=== PATIENT | female | born 1955 | race Caucasian/White ===

== ENCOUNTER 2020-02-03 09:38 | Outpatient (CLI) | payer BC, SELFPAY ==
--- NOTE | 2020-02-03 09:44 | MM_ITS ---
WS: [id number] SCREENING DIGITAL MAMMOGRAM WITH CAD HISTORY: SCREENING COMPARISON: 11/19/2018 and 11/12/2017 Bilateral CC and MLO views submitted. Computer aided detection analyzed. Breast composition: The breasts are heterogeneously dense, which may obscure small masses. No suspici ous masses, microcalcifications or architectural distortion. MM/[place] [id number] IMPRESSION: BI-RADS: 1-Negative FOLLOW UP: 1 Year Follow-up
== END 2020-02-03 09:39 | disposition home or self-care (01) ==
LOC: RADSHAW 09:43
PROVIDERS: PCP Family Medicine; Visit Provider Family Medicine
DX: Z12.31 Encounter for screening mammogram for malignant neoplasm of breast (principal)
CPT/HCPCS: 77067

== ENCOUNTER 2020-08-25 14:10 | Outpatient (CLI) | payer BC, SELFPAY ==
--- NOTE | 2020-08-25 14:15 | XR_ITS ---
WS: [id number] SCREENING DEXA SCAN [employer] CLINICAL INFORMATION: POSTMENOPAUSAL STATUS COMPARISON: FINDINGS: The L1-L4 bone mineral density measures 0.973 g/cm2. This corresponds to a T score score of -1.7 and Z score of 0.1. Left femoral neck bone mineral density measures 0.846 g/cm2. This corresponds to a T score of -1.3 an d Z score of 0.1. Right femoral neck bone mineral density measures 0.848 g/cm2. This corresponds to a T score -1.3of an d Z score of 0.1. Mean femoral neck bone mineral density measures 0.847 g/cm2. This corresponds to a T score of -1.3 an d Z score of 0.1. XR/XR DEXA axial skeleton* [id number] IMPRESSION: Osteopenia Patient's FRAX calculated 10 year probability for major osteoporotic fracture i s 7.0 % and osteoporotic hip fracture is 0.7%.
== END 2020-08-25 14:11 | disposition home or self-care (01) ==
LOC: RADWPI 14:14
PROVIDERS: PCP Family Medicine; Visit Provider Family Medicine
DX: Z78.0 Asymptomatic menopausal state (principal); M85.88 Other specified disorders of bone density and structure, other site
CPT/HCPCS: 77080

== ENCOUNTER 2021-03-14 14:52 | Outpatient (CLI) | payer BC, SELFPAY ==
--- NOTE | 2021-03-14 14:59 | MM_ITS ---
WS: [id number] BILATERAL DIGITAL SCREENING MAMMOGRAPHY WITH CAD CLINICAL INFORMATION: SCREENING HISTORY: Screening mammogram. No current complaints. COMPARISON: February 03, 2020 TECHNIQUE: Bilateral CC and MLO views. FINDINGS: Scattered fibroglandular densities bilaterally. No suspicious focal mass, asymmetry, calcifications, or architectural distortion. No evidence of malignancy. MM/[place] [id number] IMPRESSION: BI-RADS: 1-Negative FOLLOW UP: 1 Year Follow-up Recommend return to annual screening mammography.
== END 2021-03-14 14:53 | disposition home or self-care (01) ==
LOC: RADSHAW 14:57
PROVIDERS: PCP Family Medicine; Visit Provider Family Medicine
DX: Z12.31 Encounter for screening mammogram for malignant neoplasm of breast (principal)
CPT/HCPCS: 77067

== ENCOUNTER 2021-08-31 10:05 | Outpatient (CLI) | payer BC, SELFPAY ==
--- NOTE | 2021-08-31 10:19 | XR_ITS ---
WS: [id number] RIGHT KNEE: 3 VIEW(S) TECHNIQUE: AP, oblique(s) and lateral. HISTORY: R KNEE PAIN COMPARISON: None available. No fracture or dislocation. No joint space narrowing or osteophytes. No joint effusion. No soft tissue abnormality. XR/XR knee RT 3V* [id number] IMPRESSION: Normal RIGHT knee.
== END 2021-08-31 10:06 | disposition home or self-care (01) ==
LOC: RAD 10:09
PROVIDERS: PCP Family Medicine; Visit Provider Family Medicine
DX: M25.561 Pain in right knee (principal)
CPT/HCPCS: 73562

== ENCOUNTER 2021-12-29 11:19 | Outpatient (CLI) | payer BC, SELFPAY ==
--- NOTE | 2021-12-29 11:27 | XR_ITS ---
WS: [id number] Left knee, 3 views, 12/29/2021 Clinical Data: left knee joint pain Comparison: None. Findings: No fractures or dislocations are seen. The joint spaces are normal. The patella is intact. The soft t issues are unremarkable. XR/XR knee LT 3V* [id number] Impression: Negative left knee. Kellgren-Randy Classification: grade 0 (none): definite absence of x-ray rizwan nges of osteoarthritis
== END 2021-12-29 11:20 | disposition home or self-care (01) ==
PROVIDERS: PCP Family Medicine; Visit Provider Clinical Nurse Specialist Adult Health
DX: M25.562 Pain in left knee (principal)
CPT/HCPCS: 73562

== ENCOUNTER 2022-03-16 10:42 | Outpatient (CLI) | payer BC, SELFPAY ==
--- NOTE | 2022-03-16 11:01 | MM_ITS ---
WS: [id number] BILATERAL SCREENING DIGITAL TOMOSYNTHESIS MAMMOGRAM WITH CAD HISTORY: SCREENING COMPARISON: 03/14/2021 and 02/03/2020 Bilateral CC and MLO views with tomosynthesis and synthetic mammography submitted. Computer aided det ection analyzed. Breast composition: The breasts are heterogeneously dense, which may obscure small masses. No suspici ous masses, microcalcifications or architectural distortion. MM/[place] [id number] IMPRESSION: BI-RADS: 1-Negative FOLLOW UP: 1 Year Follow-up
== END 2022-03-16 10:43 | disposition home or self-care (01) ==
LOC: RAD 10:44
PROVIDERS: PCP Family Medicine; Visit Provider Family Medicine
DX: Z12.31 Encounter for screening mammogram for malignant neoplasm of breast (principal)
CPT/HCPCS: 77063; 77067

== ENCOUNTER 2022-06-01 11:13 | Emergency (ER) | payer BC, SELFPAY ==
[2022-06-01 11:28] VITALS: BP 134/70; PULSE 44; RESP 16; TEMP 36.9
[2022-06-01 11:33] VITALS: BP 135/72; PULSE 52; RESP 16
--- NOTE | 2022-06-01 11:38 | XR_ITS ---
WS: [id number] EXAMINATION: XR cervical spine 3V* [id number] Cervical spine 3 views REASON FOR EXAM: trauma COMPARISON: None available. FINDINGS: There is no sign of acute fracture or subluxation. Vertebral body heights maintained. There is diffu se narrowing of the intervertebral disc spaces from C3 through C7 with prominent anterior and posteri or spondylosis. The cervical bony alignment suggests a straightening of the normal cervical lordosis . There is no prevertebral soft tissue change. Incidental small right cervical rib. XR/XR cervical spine 3V* [id number] IMPRESSION: No acute osseous abnormality. Cervical muscle spasm possibly resulting in reduc tion of the normal cervical lordosis. Prominent cervical degenerative disc changes as noted above.
--- NOTE | 2022-06-01 11:38 | CT_ITS ---
WS: [id number] CT HEAD NONCONTRAST HISTORY: trauma TECHNIQUE: Contiguous axial imaging performed through the brain in 2.5 mm imaging. Bone and soft tiss ue windows. Sagittal and coronal reformats reviewed. All CT scans at [facility] use at least one of these dose optimization techniques: automated exposure control; mA and/or kV adjustment per pa tient size (includes targeted exams where dose is matched to clinical indication); or iterative recon struction. DLP: 1310.00 mGy.cm COMPARISON: None available. No acute intracranial hemorrhage, midline shift or mass effect. Atrophy and small vessel ischemic disease. No prior infarct. Ventricles: Normal size with no hydrocephalus. Paranasal sinuses: As visualized are clear. Mastoid air cells: Well pneumatized. Calvarium and scalp: No fracture. Soft tissue laceration over the RIGHT parietal vertex. CT/CT head wo con* [id number] IMPRESSION: 1. No acute intracranial hemorrhage or edema. 2. Minimal atrophy and small vessel ischemic disease. 3. Posterior RIGHT parietal scalp laceration. No fracture.
--- NOTE | 2022-06-01 12:03 | PC.NURSE ---
DR. PEREZ APPLIED 4 NINA TO PT HEAD LACERATION
[2022-06-01 12:33] VITALS: BP 134/88; PULSE 57; RESP 16; O2SAT 99
--- NOTE | 2022-06-01 12:42 | W.ED.HEATRA ---
HPI - Head Injury General: Chief complaint: Head Injury Stated complaint: head injury post fall Time Seen by Provider: 06/01/22 11:38 Source: patient Mode of arrival: ambulatory History of Present Illness: 67-year-old female presents emergency room with complaint of a fall. She was playing pickle ball stumbled and fell backwards struck the back of her head she has a laceration over the occiput about 5 cm in length. There is no loss of consciousness she has some mild neck discomfort. No other injury. She is not on any anticoagulants. MD Complaint: head injury Onset (ago): minute(s) Arrival Conditions: C-spine immobilization present Mechanism of Injury: fall and sports related injury Loss of Consciousness: no Location of injury: occipital Severity: mild Radiation: none Other Injuries: none Associated symptoms: Deny amnesia, confusion, nausea, neck pain, numbness, syncope, tingling, vertigo, visual changes, vomiting or weakness Review of Systems Const: Denies: fever(s), chills, body aches, change in appetite, fatigue or malaise ENMT: Denies: throat pain, ear or mastoid pain, nasal discharge or nasal congestion Card: Denies: chest pain, palpitations, irregular heart rhythm or syncope Resp: Denies: dyspnea, productive cough or non-productive cough GI: Denies: nausea or vomiting : Denies: flank pain, difficulty voiding, dysuria, urinary frequency or urinary urgency Musc: Denies: neck pain Skin/Breast: Denies: rash or pruritus Neuro: Denies: vertigo or confusion [facility] ED PFSH: Medical History (Updated 06/10/22 @ 16:54 by Nikko Sin DO) No significant past medical history Surgical History (Updated 06/10/22 @ 16:54 by Nikko Sin DO) No significant past surgical history Social History (Updated 06/10/22 @ 16:54 by Nikko Sin DO) Smoking and tobacco status: never smoked Physical Exam Const: COMMON NORMALS: no acute distress GENERAL APPEARANCE: cooperative and comfortable ORIENTATION/CONSCIOUSNESS: Yes awake, Yes oriented to person, Yes oriented to place and Yes oriented to time HENMT: COMMON NORMALS: normocephalic, hearing grossly normal bilaterally, external ears normal, EAC's normal, TM's normal bilaterally, Normal nasal mucous membranes and turbinates present, moist oral mucous membranes and oropharynx normal HEAD & SCALP: normocephalic NOSE: Normal nasal mucous membranes and turbinates present EXTERNAL EAR: Yes external ears normal EXTERNAL AUDITORY CANAL: EAC's normal TYMPANIC MEMBRANE: TM's normal bilaterally Eye: COMMON NORMALS: Equal, round and reactive pupils present, EOMs intact bilaterally, conjunctivae normal and no scleral icterus CONJUNCTIVA: Yes conjunctivae normal PUPIL: Yes Equal, round and reactive pupils present Resp: COMMON NORMALS: normal respiratory effort, No retractions, No use of accessory muscles and clear to auscultation bilaterally AUSCULTATION: clear to auscultation bilaterally Cardio: COMMON NORMALS: regular rate, regular rhythm and No murmurs present (Cardio) RATE: regular rate RHYTHM: regular rhythm GI: COMMON NORMALS: Soft to palpation and No hepatosplenomegaly present AUSCULTATION: Yes normoactive bowel sounds PALPATION: Yes Soft to palpation, No Tenderness to palpation present (GI), No Guarding due to palpation present (GI) and Yes No hepatosplenomegaly present Extremity: COMMON NORMALS: normal to inspection, capillary refill normal, no clubbing, cyanosis or edema, no calf tenderness and no pedal edema Neuro: SENSORIUM/ORIENTATION: Yes oriented to person, Yes oriented to place and Yes oriented to time Skin: COMMON NORMALS: no rashes or lesions noted GENERAL SKIN EXAM: no rashes or lesions noted Procedures Laceration Laceration 1: Site: scalp Size (cm): 7 Description: linear Depth: simple, single layer Pre-repair: irrigated extensively Skin layer closed with: other (Didi) Course Vital Signs: Vital signs: Vital Signs Temperature 98.4 F 06/01/22 11:28 Pulse Rate 65 06/01/22 13:03 Respiratory Rate 16 06/01/22 12:33 Blood Pressure 134/88 06/01/22 13:03 Pulse Oximetry 98 06/01/22 13:03 MDM - Head Injury Medcial Decision Making Imaging negative. Laceration closed with didi in the scalp wound care instructions given Didi out in 7 to 10 days Lab Data Radiology Impressions Cervical Spine X-Ray 06/01/22 11:38 IMPRESSION: No acute osseous abnormality. Cervical muscle spasm possibly resulting in reduction of the normal cervical lordosis. Prominent cervical degenerative disc changes as noted above. Head CT 06/01/22 11:38 IMPRESSION: 1. No acute intracranial hemorrhage or edema. 2. Minimal atrophy and small vessel ischemic disease. 3. Posterior RIGHT parietal scalp laceration. No fracture. Discharge Plan Discharge Patient Disposition: Home Clinical Impression: Closed head injury, Fall, Laceration of head Condition: Stable Discharge Orders: Discharge ED (Routine); Ordered 06/01/22 Ordered By: Nikko Sin Referrals: Anthony Arguelles MD [Primary Care Provider] - Patient Instructions: Scalp Laceration, Opioid Safety, Pain Management Activity Restrictions/Additional Instructions: You were seen today after a fall. Scan of your head and x-rays of your neck were normal. Laceration of the back of the head was closed with didi these should be removed in 7 to 10 days your primary care doctor's office. Recommend applying an [id number] topical Vaseline-based antibiotic ointment to the laceration at least once daily will make taking the didi out much easier and the wound will heal sooner. Coding Level of Care Code ED Strip Mine Supervisor for Katy Willis
[2022-06-01 13:03] VITALS: BP 134/88; PULSE 65; O2SAT 98
== END 2022-06-01 13:04 | disposition home or self-care (01) ==
PROVIDERS: Emergency Provider Family Medicine; PCP Family Medicine
DX: S09.8XXA Other specified injuries of head, initial encounter (principal); S01.01XA Laceration without foreign body of scalp, initial encounter; W01.0XXA Fall on same level from slipping, tripping and stumbling without subsequent striking against object, initial encounter
CPT/HCPCS: 12002; 70450; 72040; 99284

== ENCOUNTER → 2022-10-03 15:17 | Outpatient (BNVA) | payer BC, SELFPAY | PROVIDERS: PCP Family Medicine; Visit Provider Podiatrist Foot & Ankle Surgery | DX: M79.672 Pain in left foot (principal); G57.62 Lesion of plantar nerve, left lower limb | CPT/HCPCS: 73630 ==

== ENCOUNTER 2023-03-28 09:44 | Outpatient (CLI) | payer BC, SELFPAY ==
--- NOTE | 2023-03-28 10:10 | MM_ITS ---
WS: [id number] SCREENING DIGITAL TOMOSYNTHESIS MAMMOGRAM WITH CAD HISTORY: SCREENING COMPARISON: 03/16/2022 and 03/14/2021 Bilateral CC and MLO with tomosynthesis views submitted. Synthetic mammography reviewed. Computer aid ed detection analyzed. Breast composition: There are scattered areas of fibroglandular density. No suspicious masses, microc alcifications or architectural distortion. IMPRESSION: MM/[place] [id number] BI-RADS: 1-Negative FOLLOW UP: 1 Year Follow-up
== END 2023-03-28 09:45 | disposition home or self-care (01) ==
PROVIDERS: PCP Family Medicine; Visit Provider Family Medicine
DX: Z12.31 Encounter for screening mammogram for malignant neoplasm of breast (principal)
CPT/HCPCS: 77063; 77067

== ENCOUNTER 2023-06-26 11:56 | Emergency (ER) | payer BC, SELFPAY ==
--- NOTE | 2023-06-26 11:56 | XR_ITS ---
WS: [id number] Portable AP upright chest, 06/26/2023 Clinical Data: dyspnea/cough Comparison: None. Findings: No nodules, masses or effusions are seen. The heart is normal. The pulmonary vascularity is not increased. No pneumonia or pneumothorax is seen. The aortic arch and descending thoracic aorta s how minimal tortuosity. Monitor leads are on the chest wall. Impression: Atherosclerosis.
--- NOTE | 2023-06-26 11:57 | ECG_ITS ---
[facility] Test Date: 2023-06-26 Pat Name: Laureen Brennan Department: Room: Gender: Female Home Fire Alarm Installer: : 1955 Requested By: Nikko Woods Order Number: [id number] Rodger MD: Joanie Meneses M.D. Measurements Intervals Allison Rate: 54 P: -19 WA: 139 QRS: 87 QRSD: 80 T: 79 QT: 427 QTc: 406 Interpretive Statements SINUS BRADYCARDIA EARLY REPOLARIZATION [ST ELEVATION WITH NORMALLY INFLECTED T-WAVE] MODERATE ST DEPRESSION [0.05+ mV ST DEPRESSION] No previous ECG available for comparison Electronically Signed On 06-26-2023 17:49:54 RAW STOCK DYEING MACHINE TENDER by Joanie Meneses M.D. [id number]
[2023-06-26 11:59] VITALS: BP 103/64; PULSE 55; TEMP 36.6; O2SAT 96; BMI 17.2
[2023-06-26 12:25] LABS: Basophils % 0.5 %; Eosinophils # 0.1 10^3/uL (0.0-0.8); Eosinophils % 2.1 %; Hematocrit 42.5 % (36-47); Lymphocytes # 1.2 10^3/uL (0.8-4.8); Lymphocytes % 19.2 %; Mean Corpuscular HGB Conc 33.2 g/dL (30-55); Mean Corpuscular Hemoglobin 29.9 pg (27-33); Mean Platelet Volume 9.4 fL (7.4-10.4); Monocytes # 0.8 10^3/uL (0.2-0.9); Monocytes % 13.1 %; Neutrophils # 4.04 10^3/uL (1.8-7.7); Neutrophils % 64.6 %; Nucleated Red Blood Cells % 0 %; Platelet Count 170 10^3/cmm (157-399); Red Blood Count 4.72 10^6/uL (3.85-5.65); Red Cell Distribution Width 13.1 % (12.1-15.1); White Blood Count 6.25 10^3/uL (3.29-11.43)
[2023-06-26] MEDS: sodium chloride 0.9% 1,000 ML 999 ML IV (12:38)
[2023-06-26 12:42] LABS: Alanine Aminotransferase 17 U/L (0-33); Albumin Level 3.5 g/dL (3.5-5.2); Alkaline Phosphatase 44 U/L (35-105); Anion Gap 12.2 (5-19); Aspartate Amino Transferase 27 U/L (0-32); Blood Urea Nitrogen 15 mg/dL (8-23); Calcium 8.4 mg/dL (8.5-10.5); Carbon Dioxide 27 mmol/L (22-29); Chloride 101 mmol/L (98-107); Globulin 2.1 g/dL (1.3-4.6); Glomerular Filtration Rate 62.6 mL/min (90-130); Glucose 115 mg/dL (65-115); Osmolality Calculated 284 mOsm/kg (285-295); Potassium 4.2 mmol/L (3.5-5.1); Sodium 136 mmol/L (136-145); Total Bilirubin 0.3 mg/dL (0.15-1.2); Total Protein 5.6 g/dL (6.6-8.7)
[2023-06-26 12:44] LABS: Troponin(5th) Baseline 8 ng/L (0-10)
[2023-06-26 13:07] VITALS: BP 124/75; PULSE 78; RESP 21; O2SAT 98
--- NOTE | 2023-06-26 13:57 | ECG_ITS ---
[facility] Test Date: 2023-06-26 Pat Name: Laureen Brennan Department: Room: Gender: Female Draw Bench Operator: : 1955 Requested By: Nikko Woods Order Number: [id number] Rodger MD: Joanie Meneses M.D. Measurements Intervals [place] Rate: 65 P: 68 ID: [id number] QRS: 84 QRSD: 77 T: 70 QT: 394 QTc: 411 Interpretive Statements SINUS RHYTHM ST ELEVATION, PROBABLY EARLY REPOLARIZATION [ST ELEVATION WITH NORMALLY INFLECTED T-WAVE] MODERATE ST DEPRESSION [0.05+ mV ST DEPRESSION] Compared to ECG 06/26/2023 12:13:26 Sinus bradycardia no longer present ST (T wave) deviation still present Electronically Signed On 06-26-2023 21:49:38 MOP MAKER by Joanie Meneses M.D. [email or web address] [email or web address].[email or web address]/store/[id number]
[2023-06-26 14:34] LABS: Troponin 5 2HR 9.02 ng/L (0-10); Troponin 5 2HR Delta 1.02 ABS# (0-10)
--- NOTE | 2023-06-26 14:56 | W.ED.SYNCOPE ---
HPI - Syncope General: Chief Complaint: Syncope Stated Complaint: syncope Time Seen by Provider: 06/26/23 11:56 Source: patient Mode of arrival: EMS History of Present Illness: 68-year-old female presents to the emergency room with complaints of near syncopal episode. She went to the doctor's office cough cold upper respiratory symptoms as she was leaving and checking out she got diaphoretic bradycardic lightheaded and dizzy she denies ever having any chest pain that later down she felt like she was going to pass out and EMS was called she was brought into the emergency room at the time she arrived here she states she is feeling fine she is awake and alert with no specific complaints. She was mildly bradycardic and hypotensive. She had been having a lot of upper respiratory symptoms and sinus congestion which precipitated her doctor's visit today. MD complaint: felt faint and almost passed out Onset (ago): minute(s) Prodromal symptoms: lightheaded and diaphoresis Witnessed: Yes - by Bystander Context: standing up Associated symptoms: Reports weakness; Deny abdominal pain, chest pain, fever(s), headache(s), lightheadedness, nausea, short of breath or vertigo Treatments prior to arrival: IV fluids Review of Systems Const: Denies: fever(s) Card: Denies: chest pain or lightheadedness Resp: Denies: dyspnea GI: Denies: abdominal pain or nausea : Denies: dysuria, urinary frequency or urinary urgency Musc: Denies: neck pain or back pain Skin/Breast: Denies: rash Neuro: Denies: headache(s) or vertigo [facility] PFSH: Medical History (Updated 07/04/23 @ 00:00 by CAROLYN Echeverria) History of nonmelanoma skin cancer Surgical History (Updated 06/26/23 @ 18:23 by Anthony Arguelles MD) Hx of tonsillectomy and adenoids Social History Smoking and tobacco/nicotine status: never used tobacco/nicotine Physical Exam Const: COMMON NORMALS: no acute distress GENERAL APPEARANCE: cooperative and comfortable ORIENTATION/CONSCIOUSNESS: Yes awake, Yes oriented to person, Yes oriented to place and Yes oriented to time HENMT: COMMON NORMALS: normocephalic, atraumatic and hearing grossly normal bilaterally HEAD & SCALP: normocephalic and atraumatic Resp: COMMON NORMALS: normal respiratory effort, No retractions, No use of accessory muscles and clear to auscultation bilaterally AUSCULTATION: clear to auscultation bilaterally Cardio: COMMON NORMALS: regular rate, regular rhythm and No murmurs present (Cardio) RATE: regular rate RHYTHM: regular rhythm GI: COMMON NORMALS: Soft to palpation and No hepatosplenomegaly present AUSCULTATION: Yes normoactive bowel sounds PALPATION: Yes Soft to palpation, No Tenderness to palpation present (GI), No Guarding due to palpation present (GI) and Yes No hepatosplenomegaly present Extremity: COMMON NORMALS: normal to inspection, capillary refill normal, no clubbing, cyanosis or edema, no calf tenderness and no pedal edema Neuro: SENSORIUM/ORIENTATION: Yes oriented to person, Yes oriented to place and Yes oriented to time Skin: COMMON NORMALS: no rashes or lesions noted GENERAL SKIN EXAM: no rashes or lesions noted Course Vital Signs: Vital signs: Vital Signs Temperature 97.8 F 06/26/23 11:59 Pulse Rate 75 06/26/23 15:21 Respiratory Rate 21 H 06/26/23 13:07 Blood Pressure 119/73 06/26/23 15:21 Pulse Oximetry 95 06/26/23 15:21 Oxygen Delivery Me thod Room Air 06/26/23 11:59 MDM - Syncope Medical Decision Making Much improved after IV fluids no further symptoms. Patient was mildly bradycardic when she arrived here but that has improved as well blood pressure is improved with the fluids we will discharge patient home have her follow-up with her primary care doctor avoid any exertional activities in next couple of days recheck if has any worsening symptoms Medical Records I reviewed the patient's medical records. Lab Data I reviewed the patient's lab results. 06/26/23 12:16 06/26/23 12:16 Laboratory Results WBC 6.25 10^3/uL (3.29-11.43) 06/26/23 12:16 RBC 4.72 10^6/uL (3.85-5.65) 06/26/23 12:16 Hgb 14.10 g/dL (11.27-16.99) 06/26/23 12:16 Hct 42.5 % (36-47) 06/26/23 12:16 MCV 90.0 fl (85-98) 06/26/23 12:16 MCH 29.9 pg (27-33) 06/26/23 12:16 MCHC 33.2 g/dL (30-55) 06/26/23 12:16 RDW 13.1 % (12.1-15.1) 06/26/23 12:16 Plt Count 170 10^3/cmm (157-399) 06/26/23 12:16 MPV 9.4 fL (7.4-10.4) 06/26/23 12:16 Neut % (Auto) 64.6 % 06/26/23 12:16 Lymph % (Auto) 19.2 % 06/26/23 12:16 [place] % (Auto) 13.1 % 06/26/23 12:16 Eos % (Auto) 2.1 % 06/26/23 12:16 Baso % (Auto) 0.5 % 06/26/23 12:16 Neut # (Auto) 4.04 10^3/uL (1.8-7.7) 06/26/23 12:16 Lymph # (Auto) 1.2 10^3/uL (0.8-4.8) 06/26/23 12:16 [place] # (Auto) 0.8 10^3/uL (0.2-0.9) 06/26/23 12:16 Eos # (Auto) 0.1 10^3/uL (0.0-0.8) 06/26/23 12:16 Baso # (Auto) 0.0 10^3/uL (0.0-0.1) 06/26/23 12:16 Nucleated RBC % (auto) 0 % 06/26/23 12:16 Nucleated RBCs # 0.0 /100WBC 06/26/23 12:16 Sodium 136 mmol/L (136-145) 06/26/23 12:16 Potassium 4.2 mmol/L (3.5-5.1) 06/26/23 12:16 Chloride 101 mmol/L (98-107) 06/26/23 12:16 Carbon Dioxide 27 mmol/L (22-29) 06/26/23 12:16 Anion Gap 12.2 (5-19) 06/26/23 12:16 BUN 15 mg/dL (8-23) 06/26/23 12:16 Creatinine 0.9 mg/dL (0.5-0.9) 06/26/23 12:16 GFR Calculation 62.6 mL/min (90-130) L 06/26/23 12:16 Glucose 115 mg/dL (65-115) 06/26/23 12:16 Calculated Osmolality 284 mOsm/kg (285-295) L 06/26/23 12:16 Calcium 8.4 mg/dL (8.5-10.5) L 06/26/23 12:16 Total Bilirubin 0.3 mg/dL (0.15-1.2) 06/26/23 12:16 AST 27 U/L (0-32) 06/26/23 12:16 ALT 17 U/L (0-33) 06/26/23 12:16 Alkaline Phosphatase 44 U/L (35-105) 06/26/23 12:16 Troponin T Baseline 8 ng/L (0-10) 06/26/23 12:16 Troponin T 120 Minute 9.02 ng/L (0-10) 06/26/23 14:07 Delta Troponin T 1.02 ABS# (0-10) 06/26/23 14:07 Total Protein 5.6 g/dL (6.6-8.7) L 06/26/23 12:16 Albumin 3.5 g/dL (3.5-5.2) 06/26/23 12:16 Globulin 2.1 g/dL (1.3-4.6) 06/26/23 12:16 All radiology interpretation(s) finalized by discharge Discharge Plan Discharge Patient Disposition: Home Clinical Impression: Syncope due to orthostatic hypotension, Upper respiratory infection Condition: Stable Prescriptions: No Action amoxicillin-pot clavulanate 875-125 mg tablet 1 tab PO BID Qty: 14 0RF Calcium + D 600 mg-5 mcg (200 unit) Tablet 1 tab PO DAILY Anefrin 0.05 % [place],Non-Aerosol 2 - 3 spray INTRANASAL Q12H PRN (Reason: Nasal Congestion) Bc Night Time Cold&Flu Relief 2 cap PO BEDTIME Discharge Orders: Discharge ED (Routine); Ordered 06/26/23 Ordered By: Nikko Sin Referrals: Anthony Arguelles MD [Primary Care Provider] - Patient Instructions: Opioid Safety, Pain Management Activity Restrictions/Additional Instructions: Thank you for choosing [facility] for your healthcare needs today. Please realize this is an emergency room and that we are providing you with a medical screening exam and this may not be complete and all inclusive of all the testing and or work up that you may need to determine your ailment or severity of your illness. It is very important that you follow up as instructed or that you return to the Emergency Department should you have concerns or if your condition changes or worsens in any way. You are seen today after a near syncopal episode. Your blood pressure and heart rate improved after IV fluids. Recommend avoiding any exertional activities in next 24 to 48 hours and advance activity as tolerated. Follow-up with your primary care doctor if not improving Coding Level of Care Code ED Manager Creative for Katy Willis
[2023-06-26 15:21] VITALS: BP 119/73; PULSE 75; O2SAT 95
== END 2023-06-26 15:26 | disposition home or self-care (01) ==
PROVIDERS: Emergency Provider Family Medicine; PCP Family Medicine
DX: I95.1 Orthostatic hypotension (principal); J06.9 Acute upper respiratory infection, unspecified
CPT/HCPCS: 36415; 71045; 80053; 84484; 85025; 93005; 99285; J7030

== ENCOUNTER 2024-04-09 10:04 | Outpatient (CLI) | payer BC, SELFPAY ==
--- NOTE | 2024-04-09 10:07 | MM_ITS ---
WS: [id number] Bilateral screening 3D tomosynthesis digital mammogram, 04/09/2024 10:21 AM Clinical Data: SCREENING Comparison: 03/28/2023, 03/16/2022, 03/14/2021, 02/03/2020, 10/30/2018, 11/12/2017, 11/09/2016, 11/02/2015, 09/30/2014, 10/10/2013, 09/19/2012, 08/09/2011, 08/03/2010, 08/02/2009, 07/31/2008, 07/17/2007, 07/13/2006. Findings: No spiculated masses or clustered calcifications are seen. There are no secondary signs of carcinoma . MM/MM [facility] tomosynthesis [id number] Impression: Negative bilateral mammogram unchanged. Recommend annual screening mammograms. BIRADS: 1 - Negative FOLLOW UP: 1 Year Follow-up DENSITY: The breasts are heterogeneously dense, which may obscure small masses. The CAD food and beverage checker was used
== END 2024-04-09 10:05 | disposition home or self-care (01) ==
LOC: RAD 10:05
PROVIDERS: PCP Family Medicine; Visit Provider Family Medicine
DX: Z12.31 Encounter for screening mammogram for malignant neoplasm of breast (principal)
CPT/HCPCS: 77063; 77067

== ENCOUNTER 2025-03-10 14:52 | Outpatient (CLI) | payer BC, SELFPAY ==
--- NOTE | 2025-03-10 15:00 | XR_ITS ---
WS: [id number] SCREENING DEXA SCAN [employer] CLINICAL INFORMATION: Postmenopausal COMPARISON: 2020 FINDINGS: The L1-L4 bone mineral density measures 1.011 g/cm2. This corresponds to a T score score of -1.4 and Z score of 0.7. Left femoral neck bone mineral density measures 0.853 g/cm2. This corresponds to a T score of -1.2 and Z score of 0.5. Right femoral neck bone mineral density measures 0.820 g/cm2. This corresponds to a T score -1.5of and Z score of 0.2. Mean femoral neck bone mineral density measures 0.836 g/cm2. This corresponds to a T score of -1.4 and Z score of 0.3. XR/XR DEXA axial skeleton* [id number] IMPRESSION: Osteopenia lumbar spine. Osteopenia femoral necks. Patient's FRAX calculated 10 year probability for major osteoporotic fracture i s 8.5% and osteoporotic hip fracture is 1.4%. Bone mineral density lumbar spine increased 3.9% Bone mineral density femoral necks decreased -1.3%
== END 2025-03-10 14:53 | disposition home or self-care (01) ==
LOC: RAD 14:53
PROVIDERS: PCP Family Medicine; Visit Provider Family Medicine
DX: Z78.0 Asymptomatic menopausal state (principal)
CPT/HCPCS: 77080

== ENCOUNTER 2025-04-10 13:02 | Outpatient (CLI) | payer BC, SELFPAY ==
--- NOTE | 2025-04-10 | MM_ITS ---
WS: [email or web address] BILATERAL 3D TOMOSYNTHESIS DIGITAL SCREENING MAMMOGRAPHY WITH CAD CLINICAL INFORMATION: ANNUAL SCREENING HISTORY: Screening mammogram. No current complaints. COMPARISON: 2023 TECHNIQUE: Bilateral CC and MLO views. FINDINGS: The breasts are composed of heterogeneous fibroglandular density tissue, which can limit the detection of small underlying mass lesions. No suspicious mass, asymmetry, calcifications, or architectural distortion. No evidence of malignancy. Vascular calcification. MM/MM [facility] tomosynthesis [id number] IMPRESSION: DENSITY: The breasts are heterogeneously dense, which may obscure small masses. BI-RADS: 2 - Benign FOLLOW UP: 1 Year Follow-up Recommend return to annual screening mammography.
== END 2025-04-10 13:03 | disposition home or self-care (01) ==
PROVIDERS: PCP Family Medicine; Visit Provider Family Medicine
DX: Z12.31 Encounter for screening mammogram for malignant neoplasm of breast (principal); R92.333 Mammographic heterogeneous density, bilateral breasts; R92.323 Mammographic fibroglandular density, bilateral breasts; R92.1 Mammographic calcification found on diagnostic imaging of breast
CPT/HCPCS: 77063; 77067

== ENCOUNTER → 2025-04-22 07:11 | Outpatient (BNVA) | payer BC, SELFPAY | PROVIDERS: PCP Family Medicine; Visit Provider Family Medicine | DX: E55.9 Vitamin D deficiency, unspecified (principal); Z51.81 Encounter for therapeutic drug level monitoring; Z13.6 Encounter for screening for cardiovascular disorders | CPT/HCPCS: 80053; 80061; 82306; 85025 ==